=== PATIENT | male | born 1950 | race Caucasian/White ===

== ENCOUNTER → 2017-10-06 | Outpatient (REF) | payer MEDICARE | LOC: M LAB REF 19:16 | DX: N39.0 Urinary tract infection, site not specified (principal) | CPT/HCPCS: 87086 ==

== ENCOUNTER → 2017-11-08 | Outpatient (REF) | payer MEDICARE ==
[2017-11-08 19:21] LABS: APPEARANCE, URINE MANUAL CLOUDY (CLEAR); COLOR, URINE MANUAL YELLOW (YELLOW)
[2017-11-08 19:22] LABS: BILIRUBIN, URINE MANUAL NEGATIVE (NEGATIVE); BLOOD URINE MANUAL POSITIVE (NEGATIVE); GLUCOSE, URINE (UA) MANUAL 3+(500 MG/DL) mg/dL (NEGATIVE); KETONE, URINE MANUAL NEGATIVE (NEGATIVE); LEUKOCYTE ESTERASE, URINE MAN POSITIVE (NEGATIVE); NITRITE, URINE MANUAL NEGATIVE (NEGATIVE); PH,URINE MAN 5.5 UNITS (5.0 - 7.0); PROTEIN, URINE MANUAL 1+ mg/dL (NEGATIVE); SPECIFIC GRAVITY,URINE MANUAL 1.015 (1.002-1.035); UROBILINOGEN, URINE MANUAL NORMAL (NORMAL)
[2017-11-08 19:23] LABS: MICROSCOPIC INDICATED? MAN YES (NO)
[2017-11-08 19:31] LABS: BACTERIA, URINE LARGE AMOUNT; HYALINE CAST, URINE NONE SEEN /lpf (0-1); MICROSCOPIC EXAM PERFORMED; RBC, URINE 20-30 /hpf (0-3); SQUAMOUS EPITHELIAL CELL URINE SMALL AMOUNT /hpf (SMALL AMT); WBC, URINE TNTC /hpf (0-3)
== END ==
LOC: M LAB REF 10:17
DX: R30.0 Dysuria (principal)
CPT/HCPCS: 81000

== ENCOUNTER 2018-07-11 15:33 | Observation (INO) | payer MEDICARE ==
[~2018-07-11] VITALS: Ht 180.3 cm; Wt 121.6 kg
[~2018-07-11 15:33] MED LIST: /DULO30CA OR; ASPI81TA3 OR; ASPI81TA83 OR; BENI20TA11 OR; Lopressor PO; PRIMATENE; ROSU10TA OR; januvia PO; livalo PO; lortab PO
[2018-07-11] MEDS ORDERED: ONDANSETRON 4MG/2ML VIAL (J2405) As Ordered ONE (15:45)
[2018-07-11] MEDS ORDERED: NS 1,000 ML IV ONE ×2 (16:00→18:15)
[2018-07-11 16:07] LABS: VENOUS BASE EXCESS -1.7 (-2.0-2.0); VENOUS HCO3 24.8 MEQ/L (23.0-27.0); VENOUS O2 SATURATION 61.6 % (60.0-80.0); VENOUS PARTIAL PRESSURE CO2 47.6 mmHg (38.0-50.0); VENOUS PARTIAL PRESSURE O2 30.9 mmHg (30.0-50.0); VENOUS PH 7.335 UNITS (7.330-7.430); VENOUS TOTAL CO2 26.3 MEQ/L (24.0-28.0)
[2018-07-11 16:09] LABS: BASO % 0.4 % (0.0-1.0); HEMOGLOBIN 18.2 g/dl (13.5-17.5); LYMPH % 9.6 % (24.0-44.0); MEAN CORPUSCULAR HEMOGLOBIN 30.2 pg (27.0-33.0); MEAN CORPUSCULAR HGB CONC 33.1 g/dl (32.0-36.5); MEAN CORPUSCULAR VOLUME 91.4 fl (80.0-96.0); MONO # 0.9 10^3/uL (0.0-0.8); MONO % 8.5 % (0.0-5.0); NEUTROPHILS # 8.4 10^3/uL (1.8-7.7); NEUTROPHILS % 81.2 % (36.0-66.0); PLATELET COUNT, AUTOMATED 155 10^3/uL (150-450); RED BLOOD COUNT 6.02 10^6/uL (4.30-6.10); WHITE BLOOD COUNT 10.3 10^3/uL (4.0-10.0)
[2018-07-11] MEDS ORDERED: ONDANSETRON 4MG/2ML VIAL (J2405) IV ONE (16:15)
[2018-07-11 16:24] LABS: AMPHETAMINES LEVEL URINE NEGATIVE (NEGATIVE); BARBITURATES URINE NEGATIVE (NEGATIVE); BENZODIAZEPINES URINE NEGATIVE (NEGATIVE); CANNABINOIDS URINE NEGATIVE (NEGATIVE); COCAINE METABOLITE URINE NEGATIVE (NEGATIVE); METHADONE URINE NEGATIVE (NEGATIVE); OPIATES URINE NEGATIVE (NEGATIVE); PHENCYCLIDINE URINE NEGATIVE (NEGATIVE)
[2018-07-11 16:25] LABS: OSMOLALITY SERUM 304 MOSM/KG (280-301)
--- NOTE | 2018-07-11 16:25 | REP ---
Clinical: Altered mental status. Comparison: 04/11/2013. Findings: Examination is limited by portable technique and underpenetration. Cardiomegaly cannot be excluded along with mild pulmonary vascular congestion. Opacity at the right base suggest small focus of atelectasis. No pneumothorax. Skeletal structures intact. Impression: Right basilar opacity suggesting atelectasis and possible small pleural reaction. Cannot exclude cardiomegaly or mild pulmonary vascular congestion. Electronically Signed by Nik Ledbetter MD 07/11/2018 04:17 P
[2018-07-11 16:30] LABS: ACETAMINOPHEN LEVEL < 2.0 UG/ML (10.0-30.0); ALBUMIN 3.3 GM/DL (3.2-5.2); ALT/SGPT 30 U/L (12-78); BILIRUBIN,DIRECT 0.3 MG/DL (0.0-0.2); BILIRUBIN,TOTAL 1.1 MG/DL (0.2-1.0); BLOOD UREA NITROGEN 17 MG/DL (7-18); CARBON DIOXIDE LEVEL 23 MEQ/L (21-32); CHLORIDE LEVEL 105 MEQ/L (98-107); CPK CREATINE PHOSPHOKINASE 382 U/L (39-308); CREATININE FOR GFR 0.87 MG/DL (0.70-1.30); ETHYL ALCOHOL (ETHANOL) < 0.003 % (0.000-0.010); GLOMERULAR FILTRATION RATE > 60.0 (>49); GLUCOSE, FASTING 281 MG/DL (70-100); MB/CK RELATIVE INDEX 0.92 (< OR =4); POTASSIUM SERUM 4.1 MEQ/L (3.5-5.1); SALICYLATE LEVEL 1.8 MG/DL (5.0-30.0); SODIUM LEVEL 140 MEQ/L (136-145); THYROID STIMULATING HORMONE 0.874 uIU/ML (0.358-3.740); TOTAL PROTEIN 6.8 GM/DL (6.4-8.2); TROPONIN I < 0.02 NG/ML (< 0.10)
[2018-07-11] MEDS ORDERED: ISOVUE-370 76% 100ML VIAL (Q9967) As Ordered ONE (16:34)
--- NOTE | 2018-07-11 17:20 | REP ---
No clinical: Altered mental status Comparison: 07/16/2005 . Findings: Age-related atrophy and microvascular ischemic changes are appreciated. The ventricles and sulci are symmetric. Wolf-white differentiation is maintained. There is no evidence for acute intracranial hemorrhage, mass/mass effect, pathology or infarction. No extra-axial fluid collection. Calvarium is intact. Sinusitis noted. Impression: Age related atrophy and microvascular ischemic changes. No acute intracranial hemorrhage, infarction, or mass/mass effect. Sinusitis Electronically Signed by Nik Ledbetter MD 07/11/2018 05:12 P
--- NOTE | 2018-07-11 17:24 | REP ---
Clinical: Altered mental status. Trauma. Technique: Axial noncontrast images from the skull base to the thoracic inlet with coronal and sagittal re-formations. Findings: Alignment is maintained. Advanced multilevel degenerative disc osteophyte complexes are appreciated including posterior osteophytes at C3-4 and C6-7 as well as calcifications posterior to the odontoid process consistent with ligamentous calcifications. No acute fracture dislocation. Posterior elements and spinous processes are intact. Chronic canal stenosis at C2 and C3-4 to approximately 7.8 mm AP diameter as well as canal stenosis at the C6-7 level to a 0.4 mm AP diameter. Paravertebral soft tissues are normal. Impression: Advanced chronic multilevel degenerative spondylosis. Chronic multilevel canal stenosis. No acute fracture / compression injury or subluxation. Electronically Signed by Nik Ledbetter MD 07/11/2018 05:16 P
--- NOTE | 2018-07-11 17:29 | REP ---
Clinical: Acute chest pain with altered mental status. Technique: Axial contrast enhanced images from the thoracic inlet to the upper abdomen using 100 ml Isovue 370 intravenous contrast material with coronal and sagittal re-formations. Findings: Evaluation is limited by suboptimal arterial enhancement and respiratory motion artifact. No obvious main or first order pulmonary arterial emboli are identified. Thoracic aorta is normal and without aneurysm or dissection. Lung alvarado demonstrate small right lower lobe consolidation and trace bibasilar atelectasis. No effusion. No pneumothorax. Tracheobronchial tree is patent. No significant adenopathy. Atherosclerotic changes to the coronary arteries noted without significant cardiomegaly or pericardial effusion. Musculoskeletal structures demonstrate degenerative changes without focal osseous abnormality. Impression: 1. Limited examination without obvious pulmonary embolus. 2. Small focus of consolidation/atelectasis in the anterior right lower lobe and trace bibasilar linear atelectasis. Electronically Signed by Nik Ledbetter MD 07/11/2018 05:20 P
--- NOTE | 2018-07-11 17:33 | REP ---
Clinical: Abdominal pain. Altered mental status. Technique: Axial contrast enhanced images from the lung bases to the pubic symphysis with coronal and sagittal re-formations using 100 ml Isovue 370 intravenous contrast material. Findings: Examination is severely limited due to diffuse motion artifact. Liver, spleen, pancreas, bilateral adrenal glands and kidneys are grossly normal but limited due to motion artifact. The patient is status post cholecystectomy. There is no evidence for bowel obstruction. Diverticulosis noted without obvious acute diverticulitis. Pelvis demonstrates normal bladder. Prostate gland is enlarged and measures approximately 5 cm maximal diameter. Abdominal aorta without aneurysm or dissection. No ascites. No obvious adenopathy. No obvious free air. Skeletal structures demonstrate degenerative changes without focal osseous abnormality. Impression: Severely limited by motion artifact. No obvious acute process identified. Diverticulosis. Enlarged prostate gland. Electronically Signed by Nik Ledbetter MD 07/11/2018 05:24 P
[2018-07-11] MEDS ORDERED: LORazepam 2 MG/ML VIAL (J2060) IV STA ×3 (18:10→19:50)
[2018-07-11] MEDS ORDERED: cefTRIAXone SOD 1 GM in D5W MINI-BAG PLUS 50 ML IV ONE (18:15)
[2018-07-11] MEDS ORDERED: GABA-843 PO (18:38)
[2018-07-11] MEDS ORDERED: BACL1TAB9 PO (18:38)
[2018-07-11] MEDS ORDERED: HYDR-4514 PO (18:38)
[2018-07-11] MEDS ORDERED: TRUL10IN SC (18:38)
[2018-07-11] MEDS ORDERED: PRAV10TA4 PO (18:38)
[2018-07-11] MEDS ORDERED: AMLO5TAB4 PO (18:38)
[2018-07-11] MEDS: NS 1,000 ML IV SCH (20:24)
[2018-07-11] MEDS ORDERED: ONDANSETRON 4MG/2ML VIAL (J2405) IV PRN (20:30)
[2018-07-11] MEDS ORDERED: DEXTROSE 50% 50 ML SYRINGE IV PRN (20:30)
[2018-07-11] MEDS ORDERED: GLUCOSE 4 GM CHEW TABLET PO PRN (20:30)
[2018-07-11] MEDS ORDERED: GLUCAGON FOR INJ 1 MG VIAL (J1610) SC PRN (20:30)
[2018-07-11] MEDS ORDERED: LevoFLOXacin IV 750 MG in APPROPRIATE DILUENT 1 EA IV SCH (21:00)
[2018-07-11] MEDS: PRAVASTATIN 10 MG TAB PO SCH (21:00)
[2018-07-11] MEDS: HumaLOG INSULIN (NovoLOG) PER UNIT SC SCH (21:00)
--- NOTE | 2018-07-11 21:23 | HPEPDOC ---
[facility] Medical History & Physical Date of Admission Jul 11, 2018 Attending Physician: EVENS KING MD History and Physical CHIEF COMPLAINT: [Altered mentation, accidental drug overdose] HISTORY OF PRESENT ILLNESS: [68 year old gentleman was in a few past medical history of diabetes, hypertension, hyperlipidemia, atrial fibrillation not on anticoagulant at home, chronic back pain due to sciatica on Vicodin was recently started on baclofen and gabapentin by his PCP brought in by family due to altered mentation and twitching of the body. Patient recently had URI couple weeks ago and saw his PCP recently for URI and worsening back pain. Patient was prescribed gabapentin and baclofen on 07/07/2018 and started taking his medication on 07/01/2018. Since 2 days ago patient took 20 pills/day of baclofen instead of the recommended 12 pills/day. Gabapentin by the ER, no overdose on gabapentin. Today patient had behavioral changes including altered mentation, delirium, wanting to urinate while urinating, behavioral changes including agitation, and was noted to be twitching therefore came to the emergency room for further evaluation. Patient was evaluated with multiple CTs which did not show any acute process except for CT of the chest which showed right-sided opacity. Poison control was contacted and recommended Ativan for agitation and IV fluid, telemetry, trending CK, when necessary benzo for agitation. History is mainly taken from chart review, staff report, and family nerves at the bedside as patient is currently snoring and sleeping in the emergency room. Patient had to receive multiple Ativan due to severe agitation in the ER. Patient family denies the patient took medication mentioned above due to suicidal ideation. Patient has a history one other time of accidentally taking extra medication due to forgetting that he take his medication and thus taking it twice. Patient is being admitted for further evaluation and treatment. Review system: 10 point review systems negative other than those described in HPI PMH: Diabetes, hypertension, hyperlipidemia, A.fib not on anticoagulant at home, back pain due to sciatica SM[facility]: appendectomy, knee sx, ESWL, prior cystoscopic attempt at double-J stent removal Social history: Does not smoke, does not drink, no drug abuse Family medical history: No history ALLERGIES: Please see below. HOME MEDICATIONS: Please see below. PHYSICAL EXAMINATION: VITAL SIGNS: Please see below GENERAL APPEARANCE: Patient snoring loudly and on oxygen after Ativan therapy HEENT: Normocephalic, PERRLA, Mucous moist, CARDIOVASCULAR: S1,S2, pulse present, regularly, regular LUNGS: Equal decreased air entry b/l, no wheezes or crackle ABDOMEN: Soft, BS present, no tenderness, no guarding GENITOURINARY: No Elizabeth EXTREMITIES: B/L no edema, capillary refill present SKIN: Warm, No fever NEUROLOGICAL: Cranial nerves grossly intact PSYCHIATRIC: Normal mood and affect for current situation, family at the bedside LABORATORY DATA: See below. IMAGING: [CT head: Impression: Age related atrophy and microvascular ischemic changes. No acute intracranial hemorrhage, infarction, or mass/mass effect. Sinusitis CXR: Impression: Right basilar opacity suggesting atelectasis and possible small pleural reaction. Cannot exclude cardiomegaly or mild pulmonary vascular congestion. Cervical spine CT: Impression: Advanced chronic multilevel degenerative spondylosis. Chronic multilevel canal stenosis.No acute fracture / compression injury or subluxation. CTA chest: Impression: 1. Limited examination without obvious pulmonary embolus. 2. Small focus of consolidation/atelectasis in the anterior right lower lobe and trace bibasilar linear atelectasis. CT abdomen/pelvis: Impression: Severely limited by motion artifact. No obvious acute process identified. Diverticulosis. Enlarged prostate gland.] MICROBIOLOGY: Please see below. Assessment and plan: 68 year old gentleman was in a few past medical history of diabetes, hypertension, hyperlipidemia, atrial fibrillation not on anticoagulant at home, chronic back pain due to sciatica on Vicodin was recently started on baclofen and gabapentin by his PCP brought in by family due to altered mentation and twitching of the body. AMS (behavioral changes, with surgery and surgery was right do a week hitting the right upper extremity downstairs so she is getting her affect is have his cell phone number I will call call Dr. downey to Dr. Kaur is he is 80s he left his work failure disease driving or going back on water I thought that he was visited have his cell phone called and he has not had his cell phone number thickness floors calling me about his patient her sugar here fever HIS cell phone number [phone] I guess that is number okay thank you sugar was admitted to [facility] that he called his cell phone number is his cell phone paging me 100 not taking me with her aging and his both here at [facility] or satellite those longer calling me Number is going to his other found exactly right lower and I don't To the other ladies headache #2 so he patient connected that way R altered mentation, twitching, aggression, accidental drug overdose of baclofen -Poison control contacted in the ER -IV fluid, telemetry, serial CK, when necessary Ativan for agitation Right basilar opacity ?pna ? vascular congestion -RT, oxygen prn, outpt sleep study -Levaquin -Blood cultures pending -Echo, tele, serial tni Lactic acidosis likely from problem above -Treat as above, IV fluid Chronic pain, sciatica -Hold gabapentin, hold baclofen, hold Vicodin Afib hx, not on anticoagulant and not on rate controlling medication -Echo, tele, serial tni -Not on anticoagulant, [id number] patient has 3.2% per year risk for CVA, a.m. to converse with patient and family regarding adequate therapy in the morning once patient mentation clears -On amlodipine with parameter, better rate and BP control with BB DM -FS,sliding scale, hold PO, use long acting as need HTN -Resume Amlodipine with parameter, BB+ HLD -Resume statin DVT ppx w hep sc Vital Signs Vital Signs Date Time Temp Pulse Resp B/P (MAP) Pulse Ox O2 Delivery O2 Flow Rate FiO2 07/11/18 21:00 101 18 135/85 (102) 97 Nasal Cannula 4.0 07/11/18 15:52 98.9 Laboratory Data Labs 24H Laboratory Tests 2 07/11/18 15:44: Immature Granulocyte % (Auto) 0.3, White Blood Count 10.3H, Red Blood Count 6.02, Hemoglobin 18.2H, Hematocrit 55.0H, Mean Corpuscular Volume 91.4, Mean Corpuscular Hemoglobin 30.2, Mean Corpuscular Hemoglobin Concent 33.1, Red Cell Distribution Width 12.8, Platelet Count 155, Neutrophils (%) (Auto) 81.2H, Ly mphocytes (%) (Auto) 9.6L, Monocytes (%) (Auto) 8.5H, Eosinophils (%) (Auto) 0.0, Basophils (%) (Auto) 0.4, Neutrophils # (Auto) 8.4H, Lymphocytes # (Auto) 1.0L, Monocytes # (Auto) 0.9H, Eosinophils # (Auto) 0.0, Basophils # (Auto) 0.0, Nucleated Red Blood Cells % (auto) 0.0, Blood Gas Bicarbonate Standard 22.0, Venous Blood pH 7.335, Venous Blood Partial Pressure CO2 47.6, Venous Blood Partial Pressure O2 30.9, Venous Blood Total Carbon Dioxide 26.3, Venous Blood HCO3 24.8, Venous Blood Oxygen Saturation 61.6, Venous Blood Base Excess -1.7, Anion Gap 12, Glomerular Filtration Rate > 60.0, Osmolality 304H, Lactic Acid Level 2.3*H, Calcium Level 8.0L, Aspartate Amino Transf (AST/SGOT) 27, Alanine Aminotransferase (ALT/SGPT) 30, Alkaline Phosphatase 61, Total Bilirubin 1.1H, Direct Bilirubin 0.3H, Ammonia 19, Total Creatine Kinase 382H, Creatine Kinase MB 4.0H, Creatine Kinase MB Relative Index 0.92, Troponin I < 0.02, Total Protein 6.8, Albumin 3.3, Albumin/Globulin Ratio 0.94L, Thyroid Stimulating Hormone (TSH) 0.874, Salicylates Level 1.8L, Acetaminophen Level < 2.0L, Ethyl Alcohol Level < 0.003 07/11/18 15:52: Bedside Glucose (Misc Panel) 300H 07/11/18 16:02: Urine Color YELLOW, Urine Appearance CLEAR, Urine pH 5.0, Urine Specific [place] 1.027, Urine Protein 3+H, Urine Glucose (UA) 3+H, Urine Ketones 2+H, Urine Blood 2+H, Urine Nitrite NEGATIVE, Urine Bilirubin NEGATIVE, Urine Urobilinogen 0.2, Urine Leukocyte Esterase NEGATIVE, Urine WBC (Auto) 1, Urine RBC (Auto) 7H, Urine Hyaline Casts (Auto) 0, Urine Bacteria (Auto) NEGATIVE, Urine Squamous Epithelial Cells 0, Urine Mucus (Auto) SMALL, Urine Sperm (Auto) , Urine Amphetamines Screen NEGATIVE, Urine Benzodiazepines Screen NEGATIVE, Urine Opiates Screen NEGATIVE, Urine Methadone Screen NEGATIVE, Urine Barbiturates Screen NEGATIVE, Urine Phencyclidine Screen NEGATIVE, Urine Cocaine Metabolite Screen NEGATIVE, Urine Cannabinoids Screen NEGATIVE CBC/BMP Laboratory Tests 07/11/18 15:44 Red Blood Count 6.02, Mean Corpuscular Volume 91.4, Mean Corpuscular Hemoglobin 30.2, Mean Corpuscular Hemoglobin Concent 33.1, Red Cell Distribution Width 12.8, Neutrophils (%) (Auto) 81.2 H, Lymphocytes (%) (Auto) 9.6 L, Monocytes (%) (Auto) 8.5 H, Eosinophils (%) (Auto) 0.0, Basophils (%) (Auto) 0.4, Neutrophils # (Auto) 8.4 H, Lymphocytes # (Auto) 1.0 L, Monocytes # (Auto) 0.9 H, Eosinophils # (Auto) 0.0, Basophils # (Auto) 0.0 Microbiology Microbiology 07/11/18 Blood Culture, Received Pending 07/11/18 Blood Culture, Received Pending Home Medications Scheduled (Trulicity) 0.75 Mg/0.5 Ml Inj, 0.75 MG SC QWEEK THURSDAY Amlodipine Besylate (Amlodipine Besylate) 5 Mg Tab, 5 MG PO DAILY Gabapentin (Gabapentin) 300 Mg Cap, 300 MG PO TID Pravastatin Sod (Pravastatin Sodium) 10 Mg Tab, 10 MG PO QHS Scheduled PRN (Hydrocodone Bitartrate/AC 7.5-325 mg) 1 Tab Tab, 1 TAB PO TID PRN for PAIN Baclofen (Baclofen) 20 Mg Tab, 20 MG PO Q6H PRN for MUSCLE SPASMS Allergies Coded Allergies: Caffeine (Verified Allergy, Intermediate, ITCHING, 10/18/12) Azithromycin (Verified Adverse Reaction, Intermediate, VOMITING, 10/18/12) Morphine (Verified Adverse Reaction, Mild, ITCHING, NAUSEA, 10/18/12) WOO VARGAS MD Jul 11, 2018 21:23
[2018-07-11] MEDS ORDERED: METOPROLOL 5 MG/5 ML VIAL IV PRN (21:30)
[2018-07-11 22:28] VITALS: BP 197/95
[2018-07-11 22:30] VITALS: BP 195/104
[2018-07-11 22:59] LABS: CPK CREATINE PHOSPHOKINASE 593 U/L (39-308); MB/CK RELATIVE INDEX 0.66 (< OR =4); TROPONIN I < 0.02 NG/ML (< 0.10)
[2018-07-11 23:00] VITALS: BP 200/88
[2018-07-11] MEDS: LORazepam 2 MG/ML VIAL (J2060) IV PRN (23:12)
[2018-07-11 23:15] VITALS: BP 174/103
[2018-07-11 23:30] VITALS: BP 177/96
[2018-07-11] MEDS ORDERED: hydrALAZINE INJ 20 MG/ML VIAL IV PRN (23:45)
[2018-07-12] VITALS (22 sets, daily range): BP systolic 85–170; BP diastolic 49–98
[2018-07-12] MEDS: dexmedeTOMidine 200 MCG in APPROPRIATE DILUENT 1 EA IV SCH ×3 (02:23→08:03)
[2018-07-12 06:17] LABS: HEMATOCRIT 49.1 % (42.0-52.0); HEMOGLOBIN 16.3 g/dl (13.5-17.5); MEAN CORPUSCULAR HEMOGLOBIN 30.5 pg (27.0-33.0); MEAN CORPUSCULAR HGB CONC 33.2 g/dl (32.0-36.5); MEAN CORPUSCULAR VOLUME 91.8 fl (80.0-96.0); PLATELET COUNT, AUTOMATED 171 10^3/uL (150-450); RED BLOOD COUNT 5.35 10^6/uL (4.30-6.10); WHITE BLOOD COUNT 8.2 10^3/uL (4.0-10.0)
[2018-07-12] MEDS: NS 1,000 ML IV SCH (06:24)
[2018-07-12] MEDS ORDERED: SODIUM CHLORIDE 0.9% 500 ML IV ONE (06:45)
[2018-07-12 06:52] LABS: BLOOD UREA NITROGEN 21 MG/DL (7-18); CALCIUM LEVEL 8.5 MG/DL (8.8-10.2); CARBON DIOXIDE LEVEL 23 MEQ/L (21-32); CHLORIDE LEVEL 107 MEQ/L (98-107); CPK CREATINE PHOSPHOKINASE 575 U/L (39-308); CREATININE FOR GFR 0.98 MG/DL (0.70-1.30); GLOMERULAR FILTRATION RATE > 60.0 (>49); GLUCOSE, FASTING 283 MG/DL (70-100); MB/CK RELATIVE INDEX 0.47 (< OR =4); POTASSIUM SERUM 3.8 MEQ/L (3.5-5.1); SODIUM LEVEL 139 MEQ/L (136-145); TROPONIN I 0.04 NG/ML (< 0.10)
[2018-07-12] MEDS: HEPARIN SOD (PORCINE) 5000 UNITS/ML VIAL SC SCH ×3 (07:03→20:51)
[2018-07-12] MEDS: LORazepam 2 MG/ML VIAL (J2060) IV PRN (07:04)
[2018-07-12] MEDS: HumaLOG INSULIN (NovoLOG) PER UNIT SC SCH ×4 (08:03→20:51)
[2018-07-12] MEDS: amLODIPine 5 MG TAB PO SCH (09:20)
--- NOTE | 2018-07-12 12:21 | IPNPDOC ---
Subjective Date Seen The patient was seen on 07/12/18. Subjective Chief Complaint/HPI Patient seen and examined at the bedside. He denies any complaints of pain this morning, and notes that his mentation is getting closer to baseline. The patient's daughter who is at the bedside, states that the patient has been forgetful when it comes to taking his medication over the years. No acute events noted this morning. Objective Physical Examination General Exam: Positive: Alert, Cooperative, No Acute Distress ENT Exam: Positive: Atraumatic, Mucous membr. moist/pink Neck Exam: Negative: JVD Chest Exam: Positive: Clear to auscultation, Normal air movement Heart Exam: Positive: Rate Normal, Normal S1, Normal S2 Abdomen Exam: Positive: Soft; Negative: Tenderness Extremity Exam: Negative: Tenderness Assessment /Plan Plan/VTE VTE Prophylaxis Ordered?: Yes Plan Transient AMS 2/[address] Head with no acute findings The patient has returned back to his baseline mentation this morning--he denies any SI/HI, and notes that he has become increasingly forgetful and may have taken extra baclofen tabs w/o realizing it. Poison control contacted in the ER-->We will cont supportive care at this time PT ordered for functional optimization Community Acquired Pneumonia CT chest notable for RLL opacity Cont Levaquin We will down-titrate supplemental oxygen as tolerated Lactic acidosis 2/2 Above, resolved s/p IVF Hydration Chronic pain, sciatica Hold gabapentin, hold baclofen, hold Vicodin ?Hx of Atrial Fibrillation Not on anticoagulation Rate controlled, not on an agent Noted to be in NSR this AM DM Cont ISS HTN Cont current regimen HLD Cont statin DVT ppx Heparin SC Dispo--pending clinical improvement, PT clearance. VS, I&O, 24H, Fishbone Vital Signs/I&O Vital Signs Date Time Temp Pulse Resp B/P (MAP) Pulse Ox O2 Delivery O2 Flow Rate FiO2 07/12/18 09:20 92 114/62 07/12/18 08:00 5.0 07/12/18 05:54 93 Nasal Cannula 07/12/18 00:00 99.5 21 I&O- Last 24 Hours up to 6 AM 07/12/18 05:59 Intake Total 758.9 ml Balance 758.9 ml Laboratory Data 24H LABS Laboratory Tests 2 07/11/18 15:44: Immature Granulocyte % (Auto) 0.3, White Blood Count 10.3H, Red Blood Count 6.02, Hemoglobin 18.2H, Hematocrit 55.0H, Mean Corpuscular Volume 91.4, Mean Corpuscular Hemoglobin 30.2, Mean Corpuscular Hemoglobin Concent 33.1, Red Cell Distribution Width 12.8, Platelet Count 155, Neutrophils (%) (Auto) 81.2H, Lymphocytes (%) (Auto) 9.6L, Monocytes (%) (Auto) 8.5H, Eosinophils (%) (Auto) 0.0, Basophils (%) (Auto) 0.4, Neutrophils # (Auto) 8.4H, Lymphocytes # (Auto) 1.0L, Monocytes # (Auto) 0.9H, Eosinophils # (Auto) 0.0, Basophils # (Auto) 0.0, Nucleated Red Blood Cells % (auto) 0.0, Blood Gas Bicarbonate Standard 22.0, Venous Blood pH 7.335, Venous Blood Partial Pressure CO2 47.6, Venous Blood Partial Pressure O2 30.9, Venous Blood Total Carbon Dioxide 26.3, Venous Blood HCO3 24.8, Venous Blood Oxygen Saturation 61.6, Venous Blood Base Excess -1.7, Anion Gap 12, Glomerular Filtration Rate > 60.0, Osmolality 304H, Lactic Acid Level 2.3*H, Calcium Level 8.0L, Aspartate Amino Transf (AST/SGOT) 27, Alanine Aminotransferase (ALT/SGPT) 30, Alkaline Phosphatase 61, Total Bilirubin 1.1H, Direct Bilirubin 0.3H, Ammonia 19, Total Creatine Kinase 382H, Creatine Kinase MB 4.0H, Creatine Kinase MB Relative Index 0.92, Troponin I < 0.02, Total Protein 6.8, Albumin 3.3, Albumin/Globulin Ratio 0.94L, Thyroid Stimulating Hormone (TSH) 0.874, Salicylates Level 1.8L, Acetaminophen Level < 2.0L, Ethyl Alcohol Level < 0.003 07/11/18 15:52: Bedside Glucose (Misc Panel) 300H 07/11/18 16:02: Urine Color YELLOW, Urine Appearance CLEAR, Urine pH 5.0, Urine Specific [place] 1.027, Urine Protein 3+H, Urine Glucose (UA) 3+H, Urine Ketones 2+H, Urine Blood 2+H, Urine Nitrite NEGATIVE, Urine Bilirubin NEGATIVE, Urine Urobilinogen 0.2, Urine Leukocyte Esterase NEGATIVE, Urine WBC (Auto) 1, Urine RBC (Auto) 7H, Urine Hyaline Casts (Auto) 0, Urine Bacteria (Auto) NEGATIVE, Urine Squamous Epithelial Cells 0, Urine Mucus (Auto) SMALL, Urine Sperm (Auto) , Urine Amphetamines Screen NEGATIVE, Urine Benzodiazepines Screen NEGATIVE, Urine Opiates Screen NEGATIVE, Urine Methadone Screen NEGATIVE, Urine Barbiturates Screen NEGATIVE, Urine Phencyclidine Screen NEGATIVE, Urine Cocaine Metabolite Screen NEGATIVE, Urine Cannabinoids Screen NEGATIVE 07/11/18 21:30: Bedside Glucose (Misc Panel) 244H 07/11/18 22:04: Lactic Acid Followup at 4 Hours 1.3, Total Creatine Kinase 593H, Creatine Kinase MB 4.0H, Creatine Kinase MB Relative Index 0.66, Troponin I < 0.02 07/12/18 05:59: Total Creatine Kinase 575H, Creatine Kinase MB 3.0, Creatine Kinase MB Relative Index 0.47, Troponin I 0.04#, Nucleated Red Blood Cells % (auto) 0.0, Anion Gap 9, Glomerular Filtration Rate > 60.0, Blood Urea Nitrogen 21H, Creatinine 0.98, Sodium Level 139, Potassium Level 3.8, Chloride Level 107, Carbon Dioxide Level 23, Calcium Level 8.5L 07/12/18 11:51: Bedside Glucose (Misc Panel) 264H CBC/BMP Laboratory Tests 07/11/18 15:44 Red Blood Count 6.02, Mean Corpuscular Volume 91.4, Mean Corpuscular Hemoglobin 30.2, Mean Corpuscular Hemoglobin Concent 33.1, Red Cell Distribution Width 12.8, Neutrophils (%) (Auto) 81.2 H, Lymphocytes (%) (Auto) 9.6 L, Monocytes (%) (Auto) 8.5 H, Eosinophils (%) (Auto) 0.0, Basophils (%) (Auto) 0.4, Neutrophils # (Auto) 8.4 H, Lymphocytes # (Auto) 1.0 L, Monocytes # (Auto) 0.9 H, Eosinophils # (Auto) 0.0, Basophils # (Auto) 0.0 07/12/18 05:59 Red Blood Count 5.35, Mean Corpuscular Volume 91.8, Mean Corpuscular Hemoglobin 30.5, Mean Corpuscular Hemoglobin Concent 33.2, Red Cell Distribution Width 13.1, Calcium Level 8.5 L, Total Creatine Kinase 575 H Microbiology Microbiology 07/11/18 Blood Culture, Received Pending 07/11/18 Blood Culture, Received Pending 07/12/18 Respiratory Virus Panel (PCR) (RASHMI), Received Pending EVENS KING MD Jul 12, 2018 12:21
[2018-07-12 13:23] LABS: MB/CK RELATIVE INDEX 0.45 (< OR =4); TROPONIN I 0.02 NG/ML (< 0.10)
--- NOTE | 2018-07-12 13:44 | ECGEPIP ---
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
--- NOTE | 2018-07-12 13:44 | ECGEPIP ---
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
[2018-07-12] MEDS: ACETAMINOPHEN TAB 650MG DOSE (2X325MG) PO PRN (15:52)
[2018-07-12] MEDS: IPRATROPIUM 0.5MG/ALBUTEROL 2.5MG INH SOL UD 3ML (DUONEB)(J7620) NEB PRN ×2 (17:30→20:51)
[2018-07-12] MEDS: PRAVASTATIN 10 MG TAB PO SCH (20:50)
[2018-07-12] MEDS ORDERED: SODIUM CHLORIDE NASAL 0.65% SPRAY BTL (OCEAN) PRN (23:45)
[2018-07-13] VITALS (7 sets, daily range): BP systolic 138–192; BP diastolic 82–110
[2018-07-13] MEDS: ACETAMINOPHEN TAB 650MG DOSE (2X325MG) PO PRN ×2 (00:14→08:41)
[2018-07-13] MEDS: HEPARIN SOD (PORCINE) 5000 UNITS/ML VIAL SC SCH (05:37)
[2018-07-13 08:11] LABS: HEMATOCRIT 49.6 % (42.0-52.0); HEMOGLOBIN 16.4 g/dl (13.5-17.5); MEAN CORPUSCULAR HEMOGLOBIN 29.7 pg (27.0-33.0); MEAN CORPUSCULAR HGB CONC 33.1 g/dl (32.0-36.5); MEAN CORPUSCULAR VOLUME 89.9 fl (80.0-96.0); PLATELET COUNT, AUTOMATED 183 10^3/uL (150-450); RED BLOOD COUNT 5.52 10^6/uL (4.30-6.10); WHITE BLOOD COUNT 8.7 10^3/uL (4.0-10.0)
[2018-07-13] MEDS: amLODIPine 5 MG TAB PO SCH (08:40)
[2018-07-13] MEDS: HumaLOG INSULIN (NovoLOG) PER UNIT SC SCH (08:40)
[2018-07-13 08:45] LABS: BLOOD UREA NITROGEN 18 MG/DL (7-18); CALCIUM LEVEL 8.1 MG/DL (8.8-10.2); CARBON DIOXIDE LEVEL 28 MEQ/L (21-32); CHLORIDE LEVEL 102 MEQ/L (98-107); CREATININE FOR GFR 0.91 MG/DL (0.70-1.30); GLOMERULAR FILTRATION RATE > 60.0 (>49); GLUCOSE, FASTING 266 MG/DL (70-100); MAGNESIUM LEVEL 1.8 MG/DL (1.8-2.4); POTASSIUM SERUM 4.1 MEQ/L (3.5-5.1); SODIUM LEVEL 138 MEQ/L (136-145)
[2018-07-13] MEDS ORDERED: amLODIPine 5 MG TAB PO ONE (12:00)
--- NOTE | 2018-07-13 15:05 | DSES ---
DATE OF ADMISSION: 07/11/2018 DATE OF AGAINST MEDICAL ADVICE (AMA): 07/13/2018 PRIMARY CARE PROVIDER: Dr. Wagner Maria. CONSULTANTS: None. DISCHARGE DIAGNOSES: 1. Metabolic encephalopathy secondary to accidental baclofen overdose. 2. Rhinovirus infection. 3. Lactic acidosis. 4. Chronic sciatica pain. 5. Questionable history of atrial fibrillation. 6. Diabetes. 7. Hypertension. 8. Dyslipidemia. HOSPITAL COURSE: Patient is a 68-year-old gentleman who presented to [facility] on 07/11/2018 with altered mental status change. During the admission process, patient was found to have a history of taking more baclofen than instructed to control his sciatica pain. During the admission process, patient was also found to have lung finding on imaging studies. Patient was stared on empirical antibiotic while waiting for the diagnostic workup. Poison Control is contacted and recommended medical management. Later, patent was found to have rhinovirus. With medical management, patient's mentation started to improve. On July 13, 2018, patient was seen and examined in the room with his . Patient's mentation has approached his baseline. However, patient is demonstrating persistent hypertension which required close medical management. Patient stated he has refused to stay in the hospital and he understands the risks and benefits and against medical advice form was filled out with the patient under his as witness. Patient was recommended to followup with primary care provider in the next few days. VITAL SIGNS: On day of AMA showed temperature 98.3, pulse 86, respiration 20, blood pressure 192/110 manually, oxygen saturation 94% on room air. LABORATORY DATA: WBC 8.7, hemoglobin 6.4, hematocrit 49.6, platelet count 183. Sodium 138, potassium 4.1, chloride 102, carbon dioxide 28, BUN 18, creatinine 0.91, GFR greater than 60, fasting glucose 266, calcium 8.1, magnesium 1.8. Urine toxicology on 07/11/2018 is negative. Microbiology blood cultures from 07/11/2018 show no growth after 24 hours on two sets. Respiratory panel is positive for human rhinovirus/enterovirus. Imaging studies: CT of the head without contrast show age-related atrophy and microvascular ischemic change. No acute intracranial hemorrhage, infarction or mass/mass effect. Chest x-ray on 07/11/2018 showed right basilar opacity suggesting atelectasis and possible small pleural reaction. CT of the cervical spine without contrast on 07/11/2018 showed advanced chronic multilevel degenerative spondylosis. Chronic multilevel canal stenosis. No acute infiltrate/compression injury or subluxation. CT angiogram of the chest on 07/11/2018 demonstrated limited examination without obvious pulmonary embolus. Small focus of consolidation/atelectasis in the anterior right lower lobe and trace bibasilar linear atelectasis. CT of the abdomen and pelvis with IV contrast 07/11/2018 showed severe limited by motion artifact. No obvious acute process. Diverticulosis. Enlarged prostate gland. DISCHARGE INSTRUCTION: Patient signed out AMA on 07/13/2018. IV line was discontinued. Recommend patient followup with his primary care provider in the next few days. Recommend patient measure blood pressure routinely. It is recommended patient stop taking gabapentin and baclofen. Patient stated he has an appointment with pain management in the next few days for joint injections. Recommend close followup. DISCHARGE CONDITION: Guarded. Discharge took greater than 30 minutes.
--- NOTE | 2018-07-14 06:12 | ECHO ---
DATE OF PROCEDURE: 07/12/2018 AGE: 68 GENDER: Male REFERRING PHYSICIAN: Dr. Loree Goldstein. HEIGHT: 71 inches. WEIGHT: 260 pounds. BODY SURFACE AREA: 2.36 sq m. INPATIENT: Intensive care unit (ICU) Room 3202 INDICATION: Congestive heart failure (CHF). MEASUREMENTS: 2D MEASUREMENTS: RV - 3.8 cm LV- 4.2 cm Septum - 1.2 cm Posterior wall - 1.2 cm Aortic root - 3.9 cm LA - 4.0 cm LVEF - 65% DOPPLER MEASUREMENTS: AV - 1.59 m/s LVOT - 1.06 m/s LVOT diameter - 2.4 cm MV-E: 69 A: 86 EA ratio 0.8 Early mitral deacceleration time 150 ms E-prime - 10.4 A-prime - 9.6 E/E prime ratio 6.6 PV - 0.85 m/s Pulmonary artery acceleration time 116 ms IVC - 2.4 cm COMMENTS: Sinus rhythm with right bundle branch block. Technically difficult study in light of the patient's body habitus but diagnostically useful information was still obtained. M-mode and two-dimensional echocardiography was performed with pulsed, continuous wave, color flow and tissue Doppler studies. Mild concentric left ventricular hypertrophy with hyperkinetic wall motion. Mildly dilated left atrium with Doppler evidence of impairment of LV diastolic function but currently normal estimated mean left atrial pressure. Normal right heart chamber sizes and contraction with current estimated pulmonary arterial pressure upper limits of normal. Slightly dilated inferior vena cava with reduced respiratory collapse suggestive of a slightly elevated central venous pressure. Normal appearing and functioning aortic valve. Borderline dilated aortic root. Slight thickening of the mitral annulus without inflow tract obstruction and at most mild mitral insufficiency. No apparent intracardiac mass or pericardial effusion. MTDD
== END 2018-07-13 12:30 | disposition left against medical advice (07) ==
LOC: M ED 15:33 → EDBD 15:33 → M ED INP 20:24 → M ICU 22:15 → M MS4PR 07-12 18:06
PROVIDERS: ADMIT Internal Medicine; ATTEND Internal Medicine
DX: T48.291A Poisoning by other drugs acting on muscles, accidental (unintentional), initial encounter (principal); Z53.21 Procedure and treatment not carried out due to patient leaving prior to being seen by health care provider; G93.41 Metabolic encephalopathy; B97.89 Other viral agents as the cause of diseases classified elsewhere; E87.2 Acidosis; E11.9 Type 2 diabetes mellitus without complications; I10 Essential (primary) hypertension; E78.5 Hyperlipidemia, unspecified; I48.91 Unspecified atrial fibrillation; M54.30 Sciatica, unspecified side; Z88.0 Allergy status to penicillin; Z79.899 Other long term (current) drug therapy
CPT/HCPCS: 36415; 70450; 71045; 71275; 72125; 74177; 80048; 80076; 80307; 82140; 82550; 82553; 82803; 83605; 83735; 83930; 84443; 84484; 85025; 85027; 87040; 87486; 87581; 87633; 87798; 93005; 93041; 93306; 94640; 96361; 96365; 96366; 96367; 96372; 96375; 96376; 97116; 97161; 99285; G0378; G0480; J0696; J1956; J2060; J2405; Q9967

== ENCOUNTER → 2020-07-23 | Outpatient (REF) | payer MEDICARE ==
[~2020-07-23] MED LIST changes: -/DULO30CA OR; +AMLO1TAB24 PO; +BACL1TAB9 PO; +CRES10TA32 OR; +CYMB1CAP5 OR; +GABA-282 PO; +HYDR-4514 PO; +PRAV10TA4 PO; -ROSU10TA OR; +TRUL10IN SC
[2020-07-23 18:37] LABS: MAU/CREAT RATIO 745.4 MCG/MG (0.0-30.0)
== END ==
LOC: M LAB REF 17:02
PROVIDERS: ATTEND Internal Medicine Endocrinology, Diabetes & Metabolism
DX: E11.65 Type 2 diabetes mellitus with hyperglycemia (principal)

== ENCOUNTER → 2024-03-16 | Outpatient (REF) | payer MEDICARE ==
[2024-03-16 18:20] LABS: BASO # 0.1 10^3/uL (0.0-0.2); BASO % 1.2 % (0.0-1.0); EOS # 0.1 10^3/uL (0.0-0.5); EOS % 1.5 % (0.0-3.0); HEMATOCRIT 54.1 % (42.0-52.0); HEMOGLOBIN 17.7 g/dl (13.5-17.5); LYMPH # 2.4 10^3/uL (1.5-5.0); LYMPH % 39.9 % (24.0-44.0); MEAN CORPUSCULAR HEMOGLOBIN 30.7 pg (27.0-33.0); MEAN CORPUSCULAR HGB CONC 32.7 g/dl (32.0-36.5); MEAN CORPUSCULAR VOLUME 93.8 fl (80.0-96.0); MONO # 0.6 10^3/uL (0.0-0.8); MONO % 10.2 % (2.0-8.0); NEUTROPHILS # 2.8 10^3/uL (1.5-8.5); NEUTROPHILS % 46.9 % (36.0-66.0); PLATELET COUNT, AUTOMATED 146 10^3/uL (150-450); RED BLOOD COUNT 5.77 10^6/uL (4.30-6.10); WHITE BLOOD COUNT 6.1 10^3/uL (4.0-10.0)
[2024-03-16 18:25] LABS: APPEARANCE, URINE CLEAR (CLEAR); BACTERIA, URINE AUTO NEGATIVE (NEGATIVE); BILIRUBIN, URINE AUTO NEGATIVE (NEGATIVE); BLOOD, URINE BLOOD NEGATIVE (NEGATIVE); COLOR, URINE YELLOW (YELLOW); GLUCOSE, URINE (UA) AUTO 3+ mg/dL (NEGATIVE); KETONE, URINE AUTO TRACE mg/dL (NEGATIVE); LEUKOCYTE ESTERASE, URINE AUTO NEGATIVE (NEGATIVE); MUCUS, URINE SMALL (NEGATIVE); NITRITE, URINE AUTO NEGATIVE (NEGATIVE); PROTEIN, URINE AUTO 2+ mg/dL (NEGATIVE); RBC, URINE AUTO 0 /HPF (0-3); SPECIFIC GRAVITY URINE AUTO 1.032 (1.002-1.035); SQUAMOUS EPITHELIAL CELL UR AU 0 /HPF (0-6); UROBILINOGEN, URINE AUTO 0.2 mg/dL (0.0-2.0); WBC, URINE AUTO 0 /HPF (0-3)
[2024-03-16 18:47] LABS: CREATININE, URINE 125.4 MG/DL
[2024-03-16 18:49] LABS: ALBUMIN 3.5 G/DL (3.2-5.2); ALKALINE PHOSPHATASE 49 U/L (46-116); ALT/SGPT 32 U/L (7.0-40); AST/SGOT 22 U/L (<34); BILIRUBIN,TOTAL 1.3 MG/DL (0.3-1.2); BLOOD UREA NITROGEN 16 MG/DL (9-23); CARBON DIOXIDE LEVEL 29 MMOL/L (20-31); CHLORIDE LEVEL 100 MMOL/L (98-107); CHOLESTEROL LEVEL 230 MG/DL (<200); CHOLESTEROL RISK RATIO 4.44 (<5); CREATININE FOR GFR 0.85 MG/DL (0.70-1.30); GLOMERULAR FILTRATION RATE > 60.0 (>42); GLUCOSE, FASTING 319 MG/DL (74-106); HDL CHOLESTEROL 51.8 MG/DL (>40); NON-HDL-C 178.2 MG/DL; POTASSIUM SERUM 4.1 MMOL/L (3.5-5.1); SODIUM LEVEL 135 MMOL/L (136-145); TOTAL PROTEIN 6.5 G/DL (5.7-8.2); TRIGLYCERIDES LEVEL 281 MG/DL (<150)
[2024-03-16 19:00] LABS: MAU/CREAT RATIO 732.8 MCG/MG (0.0-30.0)
[2024-03-16 19:11] LABS: HEMOGLOBIN A1c 11.1 % (4.0-6.0)
== END ==
LOC: M LABDRWAD 16:59
PROVIDERS: ATTEND Family Medicine
DX: E11.9 Type 2 diabetes mellitus without complications (principal); E78.5 Hyperlipidemia, unspecified; I10 Essential (primary) hypertension

== ENCOUNTER → 2024-09-16 | Outpatient (REF) | payer MEDICARE ==
[~2024-09-16] MED LIST changes: +GABA-1172 PO; -GABA-282 PO
[2024-09-16 19:23] LABS: BASO # 0.1 10^3/uL (0.0-0.2); BASO % 1.1 % (0.0-1.0); EOS # 0.1 10^3/uL (0.0-0.5); EOS % 2.2 % (0.0-3.0); HEMATOCRIT 55.5 % (42.0-52.0); HEMOGLOBIN 17.9 g/dl (13.5-17.5); LYMPH # 1.7 10^3/uL (1.5-5.0); MEAN CORPUSCULAR HEMOGLOBIN 30.6 pg (27.0-33.0); MEAN CORPUSCULAR HGB CONC 32.3 g/dl (32.0-36.5); MEAN CORPUSCULAR VOLUME 94.9 fl (80.0-96.0); MONO # 0.6 10^3/uL (0.0-0.8); NEUTROPHILS # 2.9 10^3/uL (1.5-8.5); NEUTROPHILS % 54.5 % (36.0-66.0); PLATELET COUNT, AUTOMATED 163 10^3/uL (150-450); RED BLOOD COUNT 5.85 10^6/uL (4.30-6.10); WHITE BLOOD COUNT 5.4 10^3/uL (4.0-10.0)
[2024-09-16 19:24] LABS: ALKALINE PHOSPHATASE 42 U/L (40-129); ALT/SGPT 25 U/L (7.0-40); AST/SGOT 15 U/L (<34); BILIRUBIN,TOTAL 1.1 MG/DL (0.3-1.2); BLOOD UREA NITROGEN 17 MG/DL (9-23); CALCIUM LEVEL 9.3 MG/DL (8.3-10.6); CARBON DIOXIDE LEVEL 31 MMOL/L (20-31); CHLORIDE LEVEL 101 MMOL/L (98-107); CHOLESTEROL LEVEL 253 MG/DL (<200); CHOLESTEROL RISK RATIO 4.46 (<5); CREATININE FOR GFR 0.87 MG/DL (0.70-1.30); GLOMERULAR FILTRATION RATE > 60.0 (>42); GLUCOSE, FASTING 276 MG/DL (74-106); HDL CHOLESTEROL 56.6 MG/DL (>40); LDL CHOLESTEROL 151.4 MG/DL (<100); NON-HDL-C 196.4 MG/DL; POTASSIUM SERUM 4.6 MMOL/L (3.5-5.1); SODIUM LEVEL 141 MMOL/L (136-145); TOTAL PROTEIN 7.1 G/DL (5.7-8.2); TRIGLYCERIDES LEVEL 225 MG/DL (<150)
[2024-09-16 19:42] LABS: CREATININE, URINE 76.8 MG/DL
[2024-09-16 20:04] LABS: MAU/CREAT RATIO 1540.3 MCG/MG (0.0-30.0)
[2024-09-16 20:35] LABS: HEMOGLOBIN A1c 10.3 % (4.0-6.0)
== END ==
LOC: M LAB REF 17:22 → M LABDRWAD 17:22
PROVIDERS: ATTEND Physician Assistant Surgical
DX: E11.9 Type 2 diabetes mellitus without complications (principal); E78.5 Hyperlipidemia, unspecified; I10 Essential (primary) hypertension

== ENCOUNTER → 2025-03-09 | Outpatient (CLI) | payer MEDICARE ==
[~2025-03-09] MED LIST changes: +PRAV10TA PO; -PRAV10TA4 PO
== END ==
LOC: M WUC 15:39
PROVIDERS: ATTEND Family Medicine
DX: M54.6 Pain in thoracic spine (principal)

== ENCOUNTER → 2025-06-22 | Outpatient (REF) | payer MEDICARE ==
[2025-06-22 18:03] LABS: BASO # 0.1 10^3/uL (0.0-0.2); BASO % 1.0 % (0.0-1.0); EOS # 0.1 10^3/uL (0.0-0.5); EOS % 1.5 % (0.0-3.0); LYMPH # 2.0 10^3/uL (1.5-5.0); LYMPH % 33.6 % (24.0-44.0); MONO # 0.6 10^3/uL (0.0-0.8); MONO % 10.6 % (2.0-8.0); NEUTROPHILS # 3.1 10^3/uL (1.5-8.5); NEUTROPHILS % 53.0 % (36.0-66.0); PLATELET COUNT, AUTOMATED 180 10^3/uL (150-450)
[2025-06-22 18:31] LABS: CREATININE, URINE 72.2 MG/DL
[2025-06-22 18:32] LABS: ALT/SGPT 22 U/L (7.0-40); AST/SGOT 18 U/L (<34); CALCIUM LEVEL 8.9 MG/DL (8.3-10.6); CARBON DIOXIDE LEVEL 31 MMOL/L (20-31); CHLORIDE LEVEL 97 MMOL/L (98-107); CHOLESTEROL LEVEL 289 MG/DL (<200); CHOLESTEROL RISK RATIO 4.79 (<5); CREATININE FOR GFR 0.87 MG/DL (0.70-1.30); GLOMERULAR FILTRATION RATE > 90.0 (>42); LDL CHOLESTEROL 159.5 MG/DL (<100); NON-HDL-C 228.7 MG/DL; POTASSIUM SERUM 4.8 MMOL/L (3.5-5.1); SODIUM LEVEL 139 MMOL/L (136-145); TRIGLYCERIDES LEVEL 346 MG/DL (<150)
[2025-06-22 18:54] LABS: MALB URINE SIEMENS 1160.0 MG/L; MAU/CREAT RATIO 1606.6 MCG/MG (0.0-30.0)
[2025-06-22 19:46] LABS: ESTIMATED AVERAGE GLUCOSE 217.0 MG/DL (60-110)
== END ==
LOC: M LABDRWAD 16:44 → M LAB REF 16:44
PROVIDERS: ATTEND Family Medicine
DX: E11.9 Type 2 diabetes mellitus without complications (principal); E78.5 Hyperlipidemia, unspecified; I10 Essential (primary) hypertension